=== PATIENT | female | born 1995 | race Caucasian/White ===

== ENCOUNTER 2018-04-12 06:27 | Inpatient (IN) ==
--- OUTSIDE RECORDS SUMMARY | 2018-04-14 16:07 | External Medical Summary | Continuity of Care Document ---
:1995 Author Organization [facility] Address [address] [place], [place] [id number] Phone Support Name Relationship Address Phone Dario Park parent [address] [phone] [place] [address] Allergies, Adverse Reactions, Alerts Substance Reaction Severity Status No Known Drug Allergies Unknown Active Medications Medication Instructions Dosage Effective Dates Status Comments (start - stop) Vitamin take 1 tablet by Not Available - Active tablet oral route every day Problems Condition Effective Dates (start - stop) Clinical Status Follow-Up, Routine - Encounter for suprvsn of normal - , third trimester 34 weeks gestation of - Encounter for suprvsn of normal - , first trimester 9 weeks gestation of - Encounter for suprvsn of normal - , first trimester 13 weeks gestation of - Encounter for suprvsn of normal - , second trimester 17 weeks gestation of - Encounter for suprvsn of normal - , second trimester 19 weeks gestation of - Encounter for suprvsn of normal - , second trimester 24 weeks gestation of - Encounter for suprvsn of normal - , second trimester 19 weeks gestation of - Encounter for suprvsn of normal - , third trimester Encounter For Screening For - Streptococcus B 36 weeks gestation of - Encounter for suprvsn of normal - , third trimester 32 weeks gestation of - Encounter for suprvsn of normal - , third trimester 32 weeks gestation of - Encounter for suprvsn of normal - , third trimester 37 weeks gestation of - Encounter for suprvsn of normal - , third trimester 30 weeks gestation of - Encounter for suprvsn of normal - , third trimester 28 weeks gestation of - Depression Active Migraines Active Active Procedures Procedure Date OB Visit No Charge Results Test Name Date and Time Measure Units Reference Range Abnormal Flag Comments Unknown Advance Directives Directive Yes / No Effective Date File Name Unknown Encounters Encounter Practice Location Reason(s) Diagnoses Date Provider Care Team Description For Visit Members Isela Krause Encounter for Mar- Wilfred Referring In Womens suprvsn of normal 6-201 Leslie. Provider: Carter SADLER, , third 8 [address] [id number] weeks [place], 1522, gestation of [address], Javon [place]vin, 120, [place] [id number], Jimi [facility] 120, [place] Jimi [place]REU, tel:[phone] [place], , [place]. [id number]. tel: tel:[phone] Isela Krause Encounter for Mar-0 Wilfred Referring In Womens suprvsn of normal 9-201 Leslie. Provider: Carter SADLER, , third 8 700 Jenny [address] trimesterEncounte [place] Herrera, 1522, r For Center [address] [place] [address], Screening For Javon Ervin Streptococcus B36 120, [place] [id number], weeks gestation Javon Kra[place] 120, [place] of Jimi ABREU, tel:[phone] [place], [id number] , [place]. [id number]. tel: tel:[phone] Isela Krause Encounter for Feb- Wilfred Referring In Womens suprvsn of normal 5-201 Leslie. Provider: Carter SADLER, , third 8 700 [address] [email or web address] weeks [place], 1522, gestation of [address], Javon Ervin [place], 120, [place] [id number], Jimi, [facility] 120, [place], tel:[phone] [place], , [place]. [id number]. tel: tel:[phone] Isela Krause Encounter for Sree-1 Wilfred Referring In Womens suprvsn of normal 1-201 Leslie. Provider: Health DOROTEO, , third 8 700 Jenny LLAMAS Box [email or web address] weeks [facility], 1522, gestation of Center [address] [place] [address], , [facility], 120, [place] [id number], Jimi, [facility] 120, [place], tel:[phone] [place], , [place]. [id number]. tel: tel:[phone] Isela Krause Encounter for Sree-1 Wilfred Referring In Womens Ultrasound suprvsn of normal 1-201 Leslie. Provider: Health DOROTEO, , third 8 700 Jenny Hernandez [id number] weeks [facility] Javier, 1522, gestation of Center [address] [place] [address], , [facility], 120, [place] [id number], Jimi, [facility] 120, [place], tel:[phone] [place], , [place]. [id number]. tel: tel:[phone] Isela Krause Encounter for May-2 Wilfred Referring In Womens suprvsn of normal 9-201 Leslie. Provider: Health DOROTEO, , third 8 700 Jenny Hernandez [email or web address] weeks [facility] Javier, 1522, gestation of Center [address] [place] [address], , [facility], 120, [place] [id number], Jimi, [facility] 120, [place], tel:[phone] [place], , [place]. [id number]. tel: tel:[phone] Krause Encounter for May-1 Wilfred Referring In Womens suprvsn of normal 4-201 Leslie. Provider: Health DOROTEO, , third 8 700 Jenny [address] [email or web address] weeks [facility], 1522, gestation of [address], , [facility] Medical [place], 120, Center [id number], Jimi, [facility] 120, [place], tel:[phone] [place], , [place]. [id number]. tel: tel:[phone] Isela Krause Encounter for Apr-1 Wilfred Referring In Womens suprvsn of normal 6-201 Leslie. Provider: Carter SADLER, , second 8 700 Jenny Hernandez weeks [facility] Javier, 1522, gestation of Center [address] [place] [address], , [facility], 120, [place] [id number], Jimi, [facility] 120, [place], tel:[phone] [place], , [place]. [id number]. tel: tel:[phone] Isela Krause Encounter for Mar-1 Wilfred Referring In Womens suprvsn of normal 2-201 Leslie. Provider: Carter SADLER, , second 8 700 Jenny Hernandez [email or web address] weeks [facility] Javier, 1522, gestation of Center [address] [place] [address], , [facility], 120, [place] [id number], Jimi, [facility] 120, [place] Jim[place]U, tel:[phone] [place], , [place]. [id number]. tel: tel:[phone] Isela Krause Encounter for Mar-1 Wilfred Referring In Womens Ultrasound suprvsn of normal 2-201 Leslie. Provider: Carter SADLER, , second 8 700 Jenny Hernandez [email or web address] weeks Medical Singh Javier, 1522, gestation of Center [address] [place] [address], , [facility] [place], 120, [place] [id number], Jimi, [facility] 120, [place], tel:[phone] [place], , [place]. [id number]. tel: tel:[phone] Isela Krause Encounter for Feb-2 Wilfred Referring In Womens suprvsn of normal 6-201 Leslie. Provider: Carter SADLER, , second 8 700 Jenny Hernandez weeks Medical Trent J, 1522, gestation of Center [address] [place] [address], , [facility] [place], 120, Center [id number], Jimi, [facility] 120, [place], tel:[phone] [place], , [place]. [id number]. tel: tel:[phone] Isela Krause Encounter for Denton-2 Wilfred Referring In Womens suprvsn of normal 9-201 Leslie. Provider: Carter SADLER, , first 8 700 Jenny Hernandez [email or web address] weeks Medical Singh [place]avier, 1522, gestation of Center [address] [place] [address], , [facility] [place], 120, Center [id number], Jimi, [facility] 120, [place], tel:[phone] [place], , [place]. [id number]. tel: tel:[phone] Isela Krause Encounter for Denton-0 Wilfred Referring In Womens suprvsn of normal 4-201 Leslie. Provider: Carter SADLER, , first 8 700 Jenny Hernandez [email or web address] weeks Medical Singh Javier, 1522, gestation of Center [address] [place] [address], , [facility] [place], 120, Center [id number], Jimi, [facility] 120, [place], tel:[phone] [place], , [place]. [id number]. tel: tel:[phone] Isela Krause Nov-2 Wilfred Referring In Womens Follow-Up, 1-201 Leslie. Provider: Carter SADLER, Routine 6 700 Jenny Singh [place]avier, 1522, Center [facility] Dr Shiv, [facility] [place], 120, [place] [id number], Jimi, [facility] 120, [place], tel:[phone] [place], , [place]. [id number]. tel: tel:[phone] Krause Sep-2 Wilfred Referring In Womens 6-201 Leslie. Provider: Carter SADLER, 6 700 Jenny Singh [place]avier, 1522, Center [facility] Dr Shiv, [facility] [place], 120, Center [id number], Jimi, [facility] 120, [place], tel: [phone] [place], , [place]. [id number]. tel: tel:[phone] Associates [facility] Dec- Wilfred Referring In Womens - Leslie. Provider: Health PA, 6 700 Jenny PO Box Medical Singh J, 1522, Center [facility] Dr Shiv, [facility] [place], 120, [place] [id number], [facility] 120, [place], Jim[place], tel: [phone] [place], , [place]. [id number]. tel: tel: [phone] [facility] Nov- Singh In Womens 5-201 Jenny. Health PA, 6 700 Box Medical 1522, [place] Dr Shiv, [facility] [place], 120, [id number], [place], [place], tel: [phone] , [place]. tel: [phone] Family History Family Member Diagnosis Age At Onset No family history of Diabetes No family history of Thyroid Disorder No family history of Uterine Cancer No family history of Venous Thrombosis No family history of Colon Cancer No family history of Stroke No family history of Kidney Disease No family history of Breast Cancer No family history of Cardiovascular Disease No family history of Epilepsy No family history of Osteoporosis No family history of Hypertension No family history of Lung Disease No family history of Ovarian Cancer No family history of Pulmonary Embolism Immunizations Vaccine Date Status Comments Tdap completed Source: New Immunization Record Tdap completed Source: New Immunization Record Td (adult) preservative free completed Source: Source Unspecified measles, mumps and rubella virus completed Source: Source Unspecified vaccine Payers Payer name Insurance type Covered libertarian ID Authorization(s) [facility] [place] [id number] [place] Medicaid [place] [id number] [facility] [place] [id number] [facility] Plan [place] Medicaid [place] [id number] [facility] [id number] [place] [id number] Social History Type Description Quantity Date Captured Alcohol Use Details No Caffeine Use Details Unknown Tobacco Use Status Unknown Smoking Status Never smoker Vital Signs Date / Height Weight BMI Pulse Blood Temperature Respiratory Body Head BMI Time: Rate Pressure Rate Surface Circumference percentile Area 196.40 30.9 129/76 2018 lbs 4 mm[Hg] 10:08 kg/m AM eter (2) Chief Complaint And Reason For Visit Unknown Chief Complaint And Reason For Visit Reason For Referral Reason For Referral Unknown Plan Of Care Date Type Action Status Appointment [place] BOOKED Appointment [facility] [place] BOOKED Future Order: Radiology Order Complete OB Ultrasound > 14 Weeks Ordered ([id number]) Future Order: Radiology Order Ultrasound OB Follow-up ([id number]) Ordered Date Type Problem Goal Intervention Status Start Date Unknown. History Of Present Illness Encounter Date Complaint History Of Present Illness This patient has no known history of present illness Functional Status Encounter Date Functional Assessment Cognitive Assessment Unknown Medications Administered Medication Instructions Dosage Effective Dates (start - stop) Status Comments Drug Treatment Unknown Instructions Date Instruction Additional Information domestic violence seat belt use childbirth classes / hospital facilities hospital registration genetic testing HIV and other routine tests risk factors identified by history anticipated course of care nutrition and weight gain counseling, special diet toxoplasmosis precautions (cats / raw meat) sexual activity exercise indications for ultrasound influenza vaccine environmental / work hazards travel use of any medications (including supplements, vitamins, herbs, OTC drugs) Giving encouragement to exercise Related to Body mass index 32.0-32.9
--- OUTSIDE RECORDS SUMMARY | 2018-04-14 16:07 | External Medical Summary | Continuity of Care Document ---
:1995 Author Organization [facility] Address [address] [place], [place] [id number] Phone Support Name Relationship Address Phone Dario Park parent [address] [phone] [place] [address] Allergies, Adverse Reactions, Alerts Substance Reaction Severity [...] second trimester 19 weeks gestation of - Depression Active Migraines Active Active Procedures Procedure Date OB Visit No Charge Results Test Name Date and Time Measure Units Reference Range Abnormal Flag Comments Unknown Advance Directives Directive Yes / No Effective Date File Name Unknown Encounters Encounter Practice Location Reason(s) Diagnoses Date Provider Care Team Description For Visit Members [facility] Encounter Wilfred Referring In [facility] for suprvsn -2017 Leslie. Provider: Health [place], of normal [address], , Medical Shiv [place], [facility] Center 700 [id number], [id number] Dr [facility] Medical [place] weeks 120, Center tel: gestation of Jimi [facility] 120, [address] [place], [id number] [place], , [place]. [id number]. tel: tel:[phone] Isela Krause Encounter Wilfred Referring In Womens Ultrasound for suprvs Leslie. Provider: Health PA, of normal [address], , [place], second Center 700 [id number], [email or web address] Dr [facility] [place] weeks 120, Center tel: gestation of [facility] 120, [address] Jimi [place], [id number] [place], , [place]. [id number]. tel: tel:[phone] Isela Krause Encounter Wilfred Referring In Womens for suprvs Leslie. Provider: Health PA, of normal [address], , [place], second Center 700 , [id number] Dr [facility] [place] weeks 120, Center tel: gestation of Jimi [facility] 120, [address] [place] Jimi, [id number] [place], , [place]. [id number]. tel: tel:[phone] Isela Krause Encounter Wilfred Referring In Womens for suprvsn Leslie. Provider: Health PA, of normal [address], , [place], first Center 700 [id number], [email or web address] Dr [facility] [place] weeks 120, Center tel: gestation of Jimi [facility] 120, [address] [place] Jimi, [id number] [place], , [place]. [id number]. tel: tel:[phone] Isela Krause Encounter Wilfred Referring In Womens for suprvsn Leslie. Provider: Health PA, of normal [address], , [place], first Center 700 [id number], trimester9 Dr [facility] weeks 120, [place] tel:+[phone] gestation of [place], [facility] 120, [address] [place], [place], [id number] [place], , [place]. [id number]. tel: tel:[phone] Isela Krause Jul- Wilfred Referring In Womens Follow-Up, nda. Provider: Carter SADLER, Routine [address], [place], [place] [id number], , [facility] [place] 120, [place] tel:+ Kra[place], [facility] 120, [address] [place], [place], [id number] [place], , [place]. [id number]. tel: tel:[phone] Isela Krause May- Wilfred Referring In Womens -2015 Leslie. Provider: Carter SADLER, [address], [place], [place] [id number], , [facility] 120, [place] [facility]+ [facility] [address] [place], [place], [id number] [place], , [place]. [id number]. tel: tel:[phone] Isela Krause Dec- Wilfred Referring In Womens -2015 Leslie. Provider: Carter SADLER, [address], [place], Center [facility] [id number], , [facility] 120, [place] tel: Jimi [facility] 120, [address] [place], Jimi, [id number] [place], , [place]. [id number]. tel: tel:[phone] Isela Krause Nov- Singh In Womens -2015 Jenny. Carter SADLER, 700 [address], [place], [place] [id number], , [facility] 120, tel:[phone] Jim[place], [address] [place], [id number] , [place]. tel: [phone] Family History Family Member Diagnosis Age At [...] Comments Tdap completed Source: New Immunization Record Td (adult) preservative free completed Source: Source Unspecified measles, mumps and rubella virus completed Source: Source Unspecified vaccine Payers Payer name Insurance type Covered alliance party ID Authorization(s) [facility] [id number] [place] - Medicaid MC [id number] [facility] [id number] [place] [id number] Social History Type Description Quantity Date Captured Alcohol Use Details No Caffeine Use Details Unknown Tobacco Use Status Unknown Smoking Status Never smoker Vital Signs Date / Height Weight BMI Pulse Blood Temperature Respiratory Body Head BMI Time: Rate Pressure Rate Surface Circumference percentile Area Unknown Chief Complaint And Reason For Visit Unknown Chief Complaint And Reason For Visit Reason For Referral Reason For Referral Unknown Plan Of Care Date Type Action Status Appointment [facility] [place] BOOKED Future Order: Radiology Order Complete OB Ultrasound > 14 Weeks Ordered ([id number]) Date Type Problem Goal Intervention Status Start [...] (cats / raw meat) sexual activity exercise Denton-04-2018 indications for ultrasound influenza vaccine environmental / work hazards travel use of any medications (including supplements, vitamins, herbs, OTC drugs) Giving encouragement to exercise Related to Body mass index 32.0-32.9
--- OUTSIDE RECORDS SUMMARY | 2018-04-14 16:07 | External Medical Summary | Continuity of Care Document ---
:1995 Author Organization [facility] Address [address] [place], [place] [id number] Phone Support Name Relationship Address Phone [place] parent [address] [phone] [place] [address] Allergies, Adverse Reactions, Alerts Substance Reaction Severity [...] suprvsn of normal - , third trimester 38 weeks gestation of - Encounter for suprvsn [...] Active Migraines Active Active Procedures Procedure Date Immuniz admnin, 1 vac, sngl/combo 19 Yrs + TDAP VACCINE >7 IM OB Visit No Charge Results Test Name Date and Time Measure Units Reference Range Abnormal Flag Comments Panel Description: Strep Gp B Culture Strep Gp B Negative Negative Centers for Disease Control Culture 11:30:00 and Prevention (CDC) and [place] Congressof Obstetricians and Gynecologists (ACOG) guidelines for prevention ofperinatal group B streptococcal (GBS) disease specify co-collection ofa vaginal and rectal swab specimen to maximize sensitivity of GBSdetection. Per the CDC and ACOG, swabbing both the lower vagina andrectum substantially increases the yield of detection compared withsampling the vagina alone. .Penicillin G, ampicillin, or cefazolin are indicated for intrapartumprophylaxis of GBS colonization. Reflex susceptibilitytesting should be performed prior to use of clindamycin only on GBSisolates from penicillin-allergic women who are considered a high riskfor anaphylaxis. Treatment with vancomycin without additional testingis warranted if resistance to clindamycin is noted. Advance Directives Directive Yes / No Effective Date File Name Unknown Encounters Encounter Practice Location Reason(s) Diagnoses Date Provider Care Team Description For Visit Members Isela Krause Encounter for Wilfred Referring In Womens suprvsn of normal 3-201 Leslie. Provider: [facility], , third 8 700 [address] [email or web address] weeks Medical Francisco Herrera, 1522, gestation of Center [address] [place], , [facility] Medical [place], 120, [place] [id number], Jimi, Javon 120, [place] Jim[place], tel:[phone] [place], , [place]. [id number]. tel: tel:[phone] Isela Krause Encounter for Sarbjit-1 Wilfred Referring In Womens suprvsn of normal 6-201 Leslie. Provider: Health DOROTEO, , third 8 700 Jenny LLAMAS Box [email or web address] weeks [facility] Javier, 1522, gestation of Center [address] [place] [address], Dr [facility] [place], 120, Center [id number], Jimi, [facility] 120, [place], tel:[phone] [place], , [place]. [id number]. tel: tel:[phone] Isela Krause Encounter for Sarbjit-0 Wilfred Referring In Womens suprvsn of normal 9-201 Leslie. Provider: Health DOROTEO, , third 8 700 Jenny Hernandez trimesterEncounte [facility] Javier, 1522, r For Center [address] [place] [address], Screening For , [facility] [place] ABREU, Streptococcus B36 120, [place] [id number], weeks gestation [place], [facility] 120, [place] of [place], tel:[phone] [place], , [place]. [id number]. tel: tel:[phone] Isela Krause Encounter for Sree-2 Wilfred Referring In Womens suprvsn of normal 5-201 Leslie. Provider: Health DOROTEO, , third 8 700 Jenny Hernandez [email or web address] weeks Medical Francisco Herrera, 1522, gestation of Center [address] [place] [address], Dr [facility] [place], 120, Center [id number], Jimi, [facility] 120, [place], tel:[phone] [place], , [place]. [id number]. tel: tel:[phone] Isela Krause Encounter for Sree-1 Wilfred Referring In Womens suprvsn of normal 1-201 Leslie. Provider: Health DOROTEO, , third 8 700 Jenny LLAMAS Box [id number] weeks [facility] Javier, 1522, gestation of [address], Dr Javon Medical [place], 120, Center [id number], Jimi, [facility] 120, [place], tel:[phone] [place], , [place]. [id number]. tel: tel:[phone] Isela Krause Encounter for Sree-1 Wilfred Referring In Womens Ultrasound suprvsn of normal 1-201 Leslie. Provider: Health DOROTEO, , third 8 700 Jenny LLAMAS Box [email or web address] weeks [facility] Javier, 1522, gestation of Center [address] [place] [address], , [facility], 120, [place] [id number], Jimi, [facility] 120, [place], tel:[phone] [place], , [place]. [id number]. tel: tel:[phone] Isela Krause Encounter for May-2 Wilfred Referring In Womens suprvsn of normal 9-201 Leslie. Provider: Carter SADLER, , third 8 700 Jenny Hernandez [email or web address] weeks [facility] Javier, 1522, gestation of Center [address] [place] [address], , [facility], 120, [place] [id number], Jimi, [facility] 120, [place], tel:[phone] [place], , [place]. [id number]. tel: tel:[phone] Isela Krause Encounter for May-1 Wilfred Referring In Womens suprvsn of normal 4-201 Leslie. Provider: Health DOROTEO, , third 8 700 Jenny LLAMAS Box [email or web address] weeks [facility] Javier, 1522, gestation of Center [address] [place] [address], , [facility], 120, [place] [id number], Jimi, [facility] 120, [place], tel:[phone] [place], , [place]. [id number]. tel: tel:[phone] Krause Encounter for Apr-1 Wilfred Referring In Womens suprvsn of normal 6-201 Leslie. Provider: Health DOROTEO, , second 8 700 Jenny [address] [email or web address] weeks [facility], 1522, gestation of Center [address] [place] [address], , [facility] [place], 120, Center [id number], Jimi, [facility] 120, [place], tel:[phone] [place], , [place]. [id number]. tel: tel:[phone] Isela Krause Encounter for Mar-1 Wilfred Referring In Womens suprvsn of normal 2-201 Leslie. Provider: Carter SADLER, , second 8 700 Jenny Hernandez [id number] weeks [facility] J, 1522, gestation of Center [address] [place] [address], , [facility], 120, [place] [id number], Jimi, [facility] 120, [place], tel:[phone] [place], , [place]. [id number]. tel: tel:[phone] Isela Krause Encounter for Mar-1 Wilfred Referring In Womens Ultrasound suprvsn of normal 2-201 Leslie. Provider: Carter SADLER, , second 8 700 Jenny Hernandez [id number] weeks [facility] Javier, 1522, gestation of Center [address] [place] [address], , [facility], 120, [place] [id number], Jimi, [facility] 120, [place], tel:[phone] [place], , [place]. [id number]. tel: tel:[phone] Isela Krause Encounter for Feb-2 Wilfred Referring In Womens suprvsn of normal 6-201 Leslie. Provider: Carter SADLER, , second 8 700 Jenny Hernandez [email or web address] weeks Medical Singh Javier, 1522, gestation of Center [address] [place] [address], , [facility] [place], 120, [place] [id number], Jimi, [facility] 120, [place], tel:[phone] [place], , [place]. [id number]. tel: tel:[phone] Isela Krause Encounter for Denton-2 Wilfred Referring In Womens suprvsn of normal 9-201 Leslie. Provider: Carter SADLER, , first 8 700 Jenny Hernandez [email or web address] weeks [facility] J, 1522, gestation of Center [address] [place] [address], , [facility], 120, Center [id number], Jimi, [facility] 120, [place], tel:[phone] [place], , [place]. [id number]. tel: tel:[phone] Isela Krause Encounter for Denton-0 Wilfred Referring In Womens suprvsn of normal 4-201 Leslie. Provider: Carter SADLER, , first 8 700 Jenny Hernandez [email or web address] weeks [place] Francisco Herrera, 1522, gestation of Center [address] [place] [address], , [facility], 120, [place] [id number], Jimi, [facility] 120, [place], tel:+ [phone] [place], , [place]. [id number]. tel: tel:[phone] Isela Krause Nov-2 Wilfred Referring In Womens Follow-Up, 1-201 Leslie. Provider: Carter SADLER, Routine 6 700 Jenny Singh [place], 1522, Center [facility] Dr Shiv, [facility], 120, [place] [id number], Jimi, [facility] 120, [place], tel:[phone] [place], , [place]. [id number]. tel: tel:[phone] Isela Krause Sep-2 Wilfred Referring In Womens 6-201 Leslie. Provider: Carter SADLER, 6 700 Jenny Singh [place], 1522, Center [facility] Dr Shiv, [facility], 120, [place] [id number], Jimi, [facility] 120, [place], tel:[phone] [place], , [place]. [id number]. tel: tel:[phone] Isela Krause Apr-1 Wilfred Referring In Womens 1-201 Leslie. Provider: Carter SADLER, 6 700 Jenny Singh [place], 1522, Center [facility] Dr Shiv, [facility], 120, [place] [id number], Jimi, [facility] 120, [place], tel:[phone] [place], , . [id number]. tel: tel: [phone] Associates [place] [facility]- [place] In Womens 5-201 [facility], 6 700 [facility] 1522, [place] Dr Shiv, Javon [place], 120, [id number], [place], [place], tel: [phone] , . tel: [phone] Family History Family Member Diagnosis Age At [...] vaccine Payers Payer name Insurance type Covered constitution party ID Authorization(s) [facility] [id number] [place] - Medicaid [place] [id number] [facility] [id number] [place] Medicaid [place] [id number] [facility] [id number] [place] - Medicaid [place] [id number] Social History Type Description Quantity Date Captured Alcohol Use Details No Caffeine Use Details Unknown Tobacco Use Status Unknown Smoking Status Never smoker Vital Signs Date / Height Weight BMI Pulse Blood Temperature Respiratory Body Head BMI Time: Rate Pressure Rate Surface Circumference percentile Area 197.90 31.1 153/89 lbs 8 mm[Hg] 11:59 kg/m AM eter (2) 30. 4 11:28 kg/m AM eter (2) Chief Complaint And Reason For Visit Unknown Chief Complaint And Reason For Visit Reason For Referral Reason For Referral Unknown Plan Of Care Date Type Action Status Future Order: Radiology Order Complete OB Ultrasound > 14 Weeks Ordered ([id number]) Future Order: Radiology Order Ultrasound OB Follow-up ([id number]) Ordered Date Type Problem Goal Intervention Status [...]
--- OUTSIDE RECORDS SUMMARY | 2018-04-14 16:08 | External Medical Summary | Continuity of Care Document ---
:1995 Author Organization [facility] Address [address] [place], [place] [id number] Phone Support Name Relationship Address Phone [place] parent [address] [phone] [place] [address] Allergies, Adverse Reactions, Alerts Substance Reaction Severity [...] Active Migraines Active Active Procedures Procedure Date Ultrasnd preg uterus, flwup/repeat Results Test Name Date and Time Measure Units Reference Range Abnormal Flag Comments Unknown Advance Directives Directive Yes / No Effective Date File Name Unknown Encounters Encounter Practice Location Reason(s) Diagnoses Date Provider Care Team Description For Visit Members Isela Krause Encounter Wilfred Referring In Womens for suprvsn -2017 Leslie. Provider: Health PA, of normal [address], , [place], third Center 700 [id number], [email or web address] [facility] [place] weeks 120, [place] tel:+ gestation of [place], [facility] 120, [address] Jimi [place], [id number] [place], , [place]. [id number]. tel: tel:[phone] Isela Krause Encounter Wilfred Referring In Womens for suprvsn Leslie. Provider: Health PA, of normal 700 Jenny [address], , [place], third Center 700 [id number], [email or web address] Javon [facility] [place] weeks 120, [place] tel: gestation of [facility] 120, [address] Jim[place], [id number] [place], , [place]. [id number]. tel: tel:[phone] Isela Krause Encounter Wilfred Referring In Womens Ultrasound for suprvsn Leslie. Provider: Health PA, of normal 700 Jenny [address], , [place], third Center 700 [id number], [email or web address] Javon [facility] [place] weeks 120, Center tel:+[phone] gestation of Jimi [facility] 120, [address] Jimi [place], [id number] [place], , [place]. [id number]. tel: tel:[phone] Isela Krause Encounter Wilfred Referring In Womens for suprvsn Leslie. Provider: Health PA, of normal 700 Jenny [address], , Medical Shiv [place], third Center 700 [id number], [email or web address] [facility] [place] weeks 120, Center tel: gestation of Jimi [facility] 120, [address] Jimi [place], [id number] [place], , [place]. [id number]. tel: tel:[phone] Krause Encounter Wilfred Referring In Womens for suprvsn Leslie. Provider: Health PA, of normal [address], , [place], third Center 700 [id number], [email or web address] [facility] [place] weeks 120, [place] tel: gestation of Jimi [facility] 120, [address] Jimi [place], [id number] [place], , [place]. [id number]. tel: tel:[phone] Krause Encounter Wilfred Referring In Womens for vs Leslie. Provider: Health PA, of normal [address], , [place], second Center 700 [id number], [email or web address] [facility] [place] weeks 120, [place] tel: gestation of Jimi [facility] 120, [address] Jim[place], [id number] [place], , [place]. [id number]. tel: tel:[phone] Krause Encounter Wilfred Referring In Womens for vs Leslie. Provider: Health PA, of normal [address], , [place], second Center 700 [id number], Dr [facility] [place] weeks 120, Center tel: gestation of Jimi [facility] 120, [address] Jimi [place], [id number] [place], , [place]. [id number]. tel: tel:[phone] Isela Krause Encounter Nov- Wilfred Referring In Womens Ultrasound for suprvs Leslie. Provider: Health PA, of normal [address], , [place], second Center 700 [id number], [email or web address] Dr [facility] [place] weeks 120, Center tel: gestation of Javon Kra[place] 120, [address] Jim[place], [id number] [place], , [place]. [id number]. tel: tel:[phone] Isela Krause Encounter Wilfred Referring In Womens for suprvsn -2017 Leslie. Provider: Health PA, of normal [address], , [place], second Center 700 [id number], [email or web address] [facility] [place] weeks 120, Center tel: gestation of Jimi [facility] 120, [address] Jimi [place], [id number] [place], , [place]. [id number]. tel: tel:[phone] Isela Krause Encounter Wilfred Referring In Womens for suprn -2017 Leslie. Provider: Health PA, of normal [address], , [place], first Center 700 [id number], [email or web address] [facility] [place] weeks 120, Center tel: gestation of Jimi [facility] 120, [address] Jimi [place], [id number] [place], , [place]. [id number]. tel: tel:[phone] Isela Krause Encounter Wilfred Referring In Womens for n Leslie. Provider: Health PA, of normal [address], , [place], first Center [id number], [email or web address] Dr [facility] [place] weeks 120, Center tel: gestation of Jimi [facility] 120, [address] Jimi [place], [id number] [place], , [place]. [id number]. tel: tel:[phone] Krause Wilfred Referring In Womens Follow-Up, -2016 Leonardo. Provider: Carter SADLER, Routine [address], [place], Center [facility] [id number], , [facility] 120, [place] tel:[phone] Javon [place] 120, [address] [place], [place], [id number] [place], , [place]. [id number]. tel: tel:[phone] Associates Jimi Wilfred Referring In Womens -2015 Leonardo. Provider: Health DOROTEO, [address], [place], Center [facility] [id number], , [facility] 120, [place] tel:+[phone] Jimi [facility] 120, [address] [place], [place], [id number] [place], , [place]. [id number]. tel: tel:[phone] Associates Jimi Wilfred Referring In Womens Leonardo. Provider: Carter SADLER, [address], [place], Center [facility] [id number], , [place] [address], [place] tel:+[phone] Jimi [facility] 120, [address] [place], [place], [id number] [place], , [place]. [id number]. tel: tel:[phone] Associates Jimi Singh In [facility]. Health DOROTEO, 700 [address], [place], [place] [id number], , [facility] 120, tel:[phone] Jimi, [address] [place], [id number] , [place]. tel: [phone] Family History Family Member Diagnosis Age At [...] Insurance type Covered constitution party ID Authorization(s) [facility] [place] [id number] [employer] [place] - [place] [id number] [facility] [id number] [place] - [place] [id number] Social History Type Description Quantity Date Captured Unknown Vital Signs Date / Height Weight BMI Pulse Blood Temperature Respiratory Body Head BMI Time: Rate Pressure Rate Surface Circumference percentile Area Unknown Chief Complaint And Reason For Visit Unknown Chief Complaint And Reason For Visit Reason For Referral Reason For Referral Unknown Plan Of Care Date Type Action Status Appointment [place] BOOKED Future Order: Radiology Order Ultrasound OB Follow-up ([id number]) Ordered Future Order: Radiology Order Complete OB Ultrasound > 14 Weeks Ordered ([id number]) Date Type Problem Goal Intervention Status Start [...]
--- OUTSIDE RECORDS SUMMARY | 2018-04-14 16:08 | External Medical Summary | Continuity of Care Document ---
:1995 Author Organization [facility] Address [address] [place], [place] [id number] Phone Support Name Relationship Address Phone [place] parent [address] [phone] [place] [address] Allergies, Adverse Reactions, Alerts Substance Reaction Severity [...] [address], , Medical Shiv [place], third Center [id number], [email or web address] [facility] [place] weeks 120, [place] tel:+21 gestation of Jimi [facility] 120, [address] Jimi ABREU, [id number] [place], , [place]. [id number]. tel: tel:[phone] Isela Krause Encounter Wilfred Referring In Womens for suprvsn -2017 Leslie. Provider: Health PA, of normal [address], , [place], third Center [id number], [email or web address] [facility] US weeks 120, [place] tel:+21 gestation of Jimi [facility] 120, [address] Jimi ABREU, [id number] [place], , [place]. [id number]. tel: tel:[phone] Isela Krause Encounter Wilfred Referring In Womens Ultrasound for suprvsn Leslie. Provider: Health PA, of normal [address], , [place], third Center 700 [id number], [email or web address] Javon Ervin [place] weeks 120, [place] tel:+21 gestation of Jimi [facility] 120, [address] Jimi ABREU, [id number] [place], , [place]. [id number]. tel: tel:[phone] Isela Krause Encounter Wilfred Referring In Womens for suprvsn Leslie. Provider: Health PA, of normal [address], , Medical [place], third Center 700 [id number], [email or web address] Dr Javon Sabas [place] weeks 120, Center tel:+ gestation of Jimi [facility] 120, [address] Jimi ABREU, [id number] [place], , [place]. [id number]. tel: tel:[phone] Isela Krause Encounter Wilfred Referring In Womens for suprvsn -2017 Leslie. Provider: Health PA, of normal [address], , Medical [place], third Center 700 [id number], [email or web address] [facility] US weeks 120, Center tel:+21 gestation of Jimi [facility] 120, [address] Jimi ABREU, [id number] [place], , [place]. [id number]. tel: tel:[phone] Isela Krause Encounter Wilfred Referring In Womens for suprvsn -2017 Leslie. Provider: Health PA, of normal [address], , Medical [place], second Center 700 [id number], [email or web address] Dr [facility] US weeks 120, [place] tel:+21 gestation of Jimi [facility] 120, [address] Jimi ABREU, [id number] [place], , [place]. [id number]. tel: tel:[phone] Isela Krause Encounter Wilfred Referring In Womens for suprvsn -2018 Leslie. Provider: Health PA, of normal [address], , Medical [place], second Center 700 [id number], [email or web address] Javon Ervin [place] weeks 120, [place] tel:+21 gestation of Jimi [facility] 120, [address] Jimi ABREU, [id number] [place], , [place]. [id number]. tel: tel:[phone] Isela Krause Encounter Wilfred Referring In Womens Ultrasound for suprvsn Leslie. Provider: Health PA, of normal [address], , Medical [place], second Center 700 [id number], [email or web address] Dr [facility] US weeks 120, Center tel:+ gestation of Jimi, [facility] 120, [address] Jimi ABREU, [id number] [place], , [place]. [id number]. tel: tel:[phone] Isela Krause Encounter Wilfred Referring In Womens for suprvsn -2017 Leslie. Provider: Health PA, of normal [address], , Medical [place], second Center 700 [id number], [email or web address] [facility] US weeks 120, Center tel: gestation of Jimi [facility] 120, [address] Jimi ABREU, [id number] [place], , [place]. [id number]. tel: tel:[phone] Isela Krause Encounter Wilfred Referring In Womens for suprvsn -2017 Leslie. Provider: Health PA, of normal [address], , [place], first Center 700 [id number], [facility] US weeks 120, [place] tel: gestation of Jimi [facility] 120, [address] Jimi ABREU, [id number] [place], , [place]. [id number]. tel: tel:[phone] Isela Krause Encounter Wilfred Referring In Womens for suprvsn -2017 Leslie. Provider: Health PA, of normal [address], , [place], first Center 700 [id number], [email or web address] Javon Ervin [facility] [place] weeks 120, Center tel:+ gestation of Jimi [facility] 120, [address] Jimi ABREU, [id number] [place], , [place]. [id number]. tel: tel:[phone] Isela Krause Wilfred Referring In Womens Follow-Up, -2015 Leslie. Provider: Carter SADLER, Routine [address], Medical Singh Javier [place], [place], Center [facility] [id number], , [facility] 120, [place] tel:[phone] Jimi [facility] 120, [address] [place], Jimi, [id number] [place], , [place]. [id number]. tel: tel:[phone] Associates Jimi Wilfred Referring In Womens [place]. Provider: Carter SADLER, [address], Medical Singh Javier [place], [place], Center [facility] [id number], , [facility] 120, [place] tel:[phone] Jimi [facility] 120, [address] [place], Jim[place], [id number] [place], , [place]. [id number]. tel: tel:[phone] Associates [facility] Wilfred Referring In Women [place]. Provider: Carter SADLER, [address], Medical [place] Javier [place], Center [facility] [id number], , [facility] 120, [place] tel:[phone] Jimi [facility] 120, [address] [place], Jim[place], [id number] [place], , [place]. [id number]. tel: tel:[phone] Isela Krause Singh In [facility]. Health DOROTEO, 700 [address], [facility] [place], [place] [id number], , [facility] 120, tel:[phone] Jimi, [address] [place], [id number] , [place]. tel: [phone] Family History Family Member Diagnosis Age At [...] vaccine Payers Payer name Insurance type Covered green party ID Authorization(s) [facility] [id number] [employer] [place] Medicaid [place] [id number] [facility] [id number] [employer] [place] Medicaid [place] [id number] Social History Type Description Quantity Date Captured [...] Date Type Action Status Appointment [place] Future Order: Radiology Order Complete OB Ultrasound > 14 Weeks Ordered ([id number]) Future Order: Radiology Order Ultrasound OB Follow-up ([id number]) Ordered Date Type Problem Goal Intervention Status [...]
--- OUTSIDE RECORDS SUMMARY | 2018-04-14 16:08 | External Medical Summary | Continuity of Care Document ---
:1995 Author Organization [facility] Address [address] [place], [place] [id number] Phone Support Name Relationship Address Phone [place] parent [address] [phone] [place] [address] Allergies, Adverse Reactions, Alerts Substance Reaction Severity [...] third trimester 28 weeks gestation of - Encounter for suprvsn [...] third trimester 30 weeks gestation of - Depression Active Migraines [...] Referring In Womens for suprvsn Leslie. Provider: Carter SADLER, of normal 700 [address], , Medical [place], third Center 700 [id number], Javon Ervin Medical [place] weeks 120, Center tel: gestation of Krause, [facility] 120, [address] Jimi ABERU, [id number] [place], , [place]. [id number]. tel: tel:[phone] Isela Krause Encounter Wilfred Referring In Womens for suprvsn -2017 Leslie. Provider: Health DOROTEO, of normal [address], , Medical [place], third Center 700 [id number], [email or web address] Dr [facility] US weeks 120, Center tel: gestation of Jimi [facility] 120, [address] Jimi ABREU, [id number] [place], , [place]. [id number]. tel: tel:[phone] Isela Krause Encounter Wilfred Referring In Womens for suprvsn -2017 Leslie. Provider: Carter SADLER, of normal [address], , Medical [place], second Center 700 [id number], [email or web address] Dr [facility] US weeks 120, Center tel: gestation of Jimi [facility] 120, [address] Jimi ABREU, [id number] [place], , [place]. [id number]. tel: tel:[phone] Isela Krause Encounter Wilfred Referring In Womens for suprvsn Leslie. Provider: Carter SADLER, of normal [address], , [place], second Center 700 [id number], [email or web address] Javon Ervin Medical [place] weeks 120, Center tel:21 gestation of Jimi [facility] 120, [address] Jimi ABREU [id number] [place], , [place]. [id number]. tel: tel:[phone] Associates [facility] Encounter Wilfred Referring In Womens Ultrasound for suprvsn Leslie. Provider: Health PA, of normal [address], , [place], second Center 700 [id number], [email or web address] Dr [facility] Medical [place] weeks 120, Center tel: gestation of Krause, [facility] 120, [address] Jimi ABREU, [id number] [place], , [place]. [id number]. tel: tel:[phone] Associates [facility] Encounter Wilfred Referring In Womens for suprvsn -2017 Leslie. Provider: Health PA, of normal 700 [address], , [place], second Center 700 [id number], [email or web address] Dr [facility] US weeks 120, Center tel: gestation of Jimi [facility] 120, [address] Jimi ABREU, [id number] [place], , [place]. [id number]. tel: tel:[phone] Isela Krause Encounter Wilfred Referring In Womens for suprvsn -2017 Leslie. Provider: Health PA, of normal [address], , Medical [place], first Center 700 [id number], Dr [facility] Medical [place] weeks 120, Center tel: gestation of Jimi [facility] 120, [address] Jimi ABREU, [id number] [place], , [place]. [id number]. tel: tel:[phone] Isela Krause Encounter Wilfred Referring In Womens for suprvsn -2017 Leslie. Provider: Health DOROTEO, of normal [address], , [place], first Center 700 [id number], [email or web address] Dr [facility] Medical [place] weeks 120, Center tel:21 gestation of Jimi [facility] 120, [address] Jimi ABREU, [id number] [place], , [place]. [id number]. tel: tel:[phone] Isela Krause Wilfred Referring In Womens Follow-Up, Leslie. Provider: Health DOROTEO, Routine [address], [place], Center 700 [id number], , [facility] 120, [place] tel:[phone] Krause, Javon 120, [address] [place], [place], [id number] [place], , [place]. [id number]. tel: tel:[phone] Isela Krause May- Wilfred Referring In Womens -2015 Leslie. Provider: Carter SADLER, [address], [place], Center [facility] [id number], , [facility] 120, [place] tel:+21 Jimi, Javon 120, [address] [place], [place], [id number] [place], , [place]. [id number]. tel: tel:[phone] Isela Krause Dec- Wilfred Referring In Womens -2016 Leslie. Provider: Carter SADLRE, [address], [place], Center [facility] [id number], , [facility] 120, [place] tel:+[phone] Jimi, Javon 120, [address] [place], [place], [id number] [place], , [place]. [id number]. tel: tel:[phone] Isela Krause Signh In Womens -2016 Jenny. Health DOROTEO, 700 [address], [place], Center [id number], , [facility] 120, tel:+[phone] Jimi, [address] [place], [id number] , [place]. tel: [phone] Family History Family Member Diagnosis Age At [...] name Insurance type Covered libertarian ID Authorization(s) [facility] [id number] [employer] [place] Medicaid [place] [id number] [facility] [id number] [employer] [place] Medicaid [place] [id number] Social History Type Description Quantity Date Captured [...] [place] BOOKED Appointment [place] BOOKED Appointment [place] BOOKED Appointment [place] BOOKED Future Order: Radiology Order Complete OB Ultrasound > 14 Weeks Ordered ([id number]) Date Type Problem Goal Intervention Status Start [...]
--- OUTSIDE RECORDS SUMMARY | 2018-04-14 16:08 | External Medical Summary | Continuity of Care Document ---
:1995 Author Organization [facility] Allergies Active Description Code Type Severity Reaction Onset Reported/ Identified Relationship Clinical to Patient Status Yes No Known 53332 3 N/A N/A Drug 0 Allergies Yes No Known No Aller Unknown N/A 02/20/2011 Drug Known gy Allergies Drug Aller gies Medications Medication Packaging Start Date Stop Date Route Dosage Sig TAB 06/28/2016 1 Pnv#24/Iron Aa DAILY Jennifer/FA/Dha TAB 06/28/2016 1-2 Hydrocodone/Acet Q4H aminophen MG 06/28/2016 240 Docusate Calcium DAILY MG 06/28/2016 800 Ibuprofen Q8HMC Package 07/31/2016 09/12/2017 WALLY take 1 tablet by oral route every day 03/21/2018 PO 1 each Tablet DAILY Problems Date Dx Attending Type Code Diagnosis Diagnosed By Coded 12/20/2015 Leslie Hardin Z34.01 Encntr for suprvsn L of normal first preg, first trimester 12/20/2015 Leslie Hardin Z3A.12 12 weeks gestation L of 02/14/2016 Leslie Hardin Z34.02 Encntr for suprvsn L of normal first preg, second trimester 02/14/2016 Leslie Hardin Z3A.20 20 weeks gestation L of 04/19/2016 Sherrie Ritchie O36.8130 Decreased Movement 04/19/2016 Sherrie Ritchie Z34.03 Routine Care, Primagravida 05/22/2016 Leslie Hardin O36.5930 Matern care for oth L or susp poor fetl grth, third tri, unsp 05/22/2016 Leslie Hardin O36.8130 Decreased L movements, third trimester, unsp 05/22/2016 Leslie Hardin Z3A.34 34 weeks gestation L of 06/05/2016 Leslie Hardin Z36 Screening L 11/19/2017 Leslie Hardin Z34.82 Encounter for L suprvsn of normal , second trimester 11/19/2017 Leslie Hardin Z3A.19 19 weeks gestation L of 02/18/2018 Leslie Hardin W Z34.83 Encounter for L suprvsn of normal , third trimester 02/18/2018 Leslie Hardin Z3A.32 32 weeks gestation L of Procedures Code Description [place] [address] Ultrasound, 12/20/2015 Nuchal Translucency Measurement 99821 Ultrasnd exam 02/14/2016 of preg uterus, compl 17109 Ultrasnd preg 05/22/2016 uterus, flwup/repeat 25998 Immuniz 06/05/2016 admnin, 1 vac, sngl/combo 51534 TDAP VACCINE 06/05/2016 >7 IM 83138 Ultrasnd exam 11/19/2017 of preg uterus, compl 64752 Ultrasnd preg 02/18/2018 uterus, flwup/repeat 67729 Immuniz 03/18/2018 admnin, 1 vac, sngl/combo 26055 TDAP VACCINE 03/18/2018 >7 IM Results Test Result Range L100.0070 - 06/25/16 17:48 WBC - WHITE BLOOD COUNT 8.0 T/MM3 4.5-11.0 RED BLOOD COUNT 3.83 M/MM3 4.00-5.20 HGB - HEMOGLOBIN 11.7 GM/DL 12-16 HCT - HEMATOCRIT 34.3 % 36-46 MEAN CORPUSCULAR VOLUME 89.6 UM3 80-100 MEAN CORPUSCULAR HGB 30.5 UUG 26-34 MEAN CORPUSCULAR HGB CONC(MCHC 34.1 GM/DL 31-37 RDW STANDARD DEVIATION 41.1 FL 36.9-50.2 PLT - PLATELET COUNT 180 T/MM3 130-400 MEAN PLATELET VOLUME 11.4 UM3 9.4-12.4 B100.0700 - 06/25/16 17:48 BLOOD TYPE O POSITIVE ANTIBODY SCREEN NEGATIVE B110.1099 - 06/25/16 17:48 BBT5 O POSITIVE Encounters ACCT No. Visit Discharge Status Pt. Type Provider Facility Loc./Unit Complaint Date/Time [id number] 04/01/2018 04/01/2018 CLS Outpatient Wilfred, 13:30:00 23:59:59 Leslie L [id number] 03/25/2018 03/25/2018 CLS Outpatient Wilfred, 09:30:00 23:59:59 Leslie L [id number] 03/18/2018 03/18/2018 CLS Outpatient Wilfred, 11:15:00 23:59:59 Leslie L [id number] 03/04/2018 03/04/2018 CLS Outpatient Wilfred, 09:45:00 23:59:59 Leslie L [id number] 02/18/2018 02/18/2018 CLS Outpatient Wilfred, 13:15:00 23:59:59 Leslie L [id number] 02/18/2018 02/18/2018 CLS Outpatient Wilfred, 12:45:00 23:59:59 Leslie L [id number] 02/05/2018 02/05/2018 CLS Outpatient Wilfred, 11:30:00 23:59:59 Leslie L [id number] 01/21/2018 01/21/2018 CLS Outpatient Wilfred, 11:15:00 23:59:59 Leslie L [id number] 12/24/2017 12/24/2017 CLS Outpatient Wilfred, 10:15:00 23:59:59 Leslie L [id number] 11/19/2017 11/19/2017 CLS Outpatient Wilfred, 10:25:00 23:59:59 Leslie L [id number] 11/19/2017 11/19/2017 CLS Outpatient Wilfred, 09:45:00 23:59:59 Leslie L [id number] 11/05/2017 11/05/2017 CLS Outpatient Wilfred, 11:30:00 23:59:59 Leslie L [id number] 10/08/2017 10/08/2017 CLS Outpatient Wilfred, 11:15:00 23:59:59 Leslie L [id number] 09/13/2017 09/13/2017 CLS Outpatient Wilfred, 14:15:00 23:59:59 Leslie L [id number] 11/13/2016 11/13/2016 CLS Outpatient LeClaire, 14:21:00 23:59:59 Moshe L [id number] 07/31/2016 07/31/2016 CLS Outpatient Wilfred, 13:40:00 23:59:59 Leslie L [id number] 06/27/2016 06/27/2016 CLS Outpatient Wilfred, 04:35:00 23:59:59 Leslie L [id number] 06/19/2016 06/19/2016 CLS Outpatient Wilfred, 09:30:00 23:59:59 Leslie L [id number] 06/15/2016 06/15/2016 CLS Outpatient Wilfred, 16:12:00 23:59:59 Leslie L [id number] 06/12/2016 06/12/2016 CLS Outpatient Wilfred, 09:30:00 23:59:59 Leslie L [id number] 06/05/2016 06/05/2016 CLS Outpatient Wilfred, 09:30:00 23:59:59 Leslie L [id number] 05/22/2016 05/22/2016 CLS Outpatient Wilfred, 13:30:00 23:59:59 Leslie L [id number] 05/22/2016 05/22/2016 CLS Outpatient Wilfred, 12:45:00 23:59:59 Leslie L [id number] 05/12/2016 05/12/2016 CLS Outpatient Wilfred, 15:20:00 23:59:59 Leslie L [id number] 05/08/2016 05/08/2016 CLS Outpatient Wilfred, 09:45:00 23:59:59 Leslie L [id number] 04/24/2016 04/24/2016 CLS Outpatient Wilfred, 09:55:00 23:59:59 Leslie L [id number] 04/19/2016 04/19/2016 CLS Outpatient Ritchie, 15:45:00 23:59:59 Sherrie Roach [id number] 04/19/2016 04/19/2016 CLS Outpatient Wilfred, 13:51:00 23:59:59 Leslie L [id number] 04/06/2016 04/06/2016 CLS Outpatient Wilfred, 14:10:00 23:59:59 Leslie L [id number] 03/16/2016 03/16/2016 CLS Outpatient Wilfred, 15:50:00 23:59:59 Leslie L [id number] 02/14/2016 02/14/2016 CLS Outpatient Wilfred, 15:30:00 23:59:59 Leslie L [id number] 02/14/2016 02/14/2016 CLS Outpatient Wilfred, 15:15:00 23:59:59 Leslie L [id number] 01/17/2016 01/17/2016 CLS Outpatient Wilfred, 15:30:00 23:59:59 Leslie L [id number] 12/20/2015 12/20/2015 CLS Outpatient Wilfred, 16:15:00 23:59:59 Leslie L [id number] 12/20/2015 12/20/2015 CLS Outpatient Wilfred, 15:45:00 23:59:59 Leslie L [id number] 11/29/2015 11/29/2015 CLS Outpatient Wilfred, 15:00:00 23:59:59 Leslie L [id number] 11/23/2015 11/23/2015 CLS Outpatient Singh, 11:05:00 23:59:59 Jenny Herrera [id number] 06/25/2016 06/28/2016 DIS Inpatient WILFRED Krause [facility] 29 17:12:00 12:00:00 MD Medical LESLIE L [place] [id number] 05/12/2016 05/12/2016 DIS Outpatient WILFRED Krause OBOBS [id number] 16:05:00 17:13:00 MD Medical LESLIE L [place] [id number] 04/12/2018 PEN Preadmit 17 00:00:00 [id number] 09/22/2013 ACT Unknown [id number] 10:25:00
--- OUTSIDE RECORDS SUMMARY | 2018-04-14 16:08 | External Medical Summary | Continuity of Care Document ---
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 Test Name Date and Time Measure Units Reference Range Abnormal Flag Comments Panel Description: OBSTETRIC PANEL WHITE BLOOD CELL 8.4 Thousand/uL 3.8-10.8 N COUNT 14:55:00 RED BLOOD CELL 4.45 Million/uL 3.80-5.10 N COUNT 14:55:00 HEMOGLOBIN 13.5 g/dL 11.7-15.5 N 14:55:00 HEMATOCRIT 39.5 % 35.0-45.0 N 14:55:00 MCV 88.8 fL 80.0-100.0 N 14:55:00 MCH 30.3 pg 27.0-33.0 N 14:55:00 MCHC 34.2 g/dL 32.0-36.0 N 14:55:00 RDW 13.1 % 11.0-15.0 N 14:55:00 PLATELET COUNT 283 Thousand/uL 140-400 N 14:55:00 MPV 10.4 fL 7.5-12.5 N 14:55:00 ABSOLUTE 5863 cells/uL 7909-7869 N NEUTROPHILS 14:55:00 ABSOLUTE 2016 cells/uL 850-3900 N LYMPHOCYTES 14:55:00 ABSOLUTE 454 cells/uL 200-950 N MONOCYTES 14:55:00 ABSOLUTE 50 cells/uL 15-500 N EOSINOPHILS 14:55:00 ABSOLUTE 17 cells/uL 0-200 N BASOPHILS 14:55:00 NEUTROPHILS 69.8 % N 14:55:00 LYMPHOCYTES 24.0 % N 14:55:00 MONOCYTES 5.4 % N 14:55:00 EOSINOPHILS 0.6 % N 14:55:00 BASOPHILS 0.2 % N 14:55:00 ANTIBODY SCREEN, NO ANTIBODIES N RBC W/REFL ID, 14:55:00 DETECTED Reference range TITER AND AG No antibodies detected This assay is a screening test for the detection of red blood cell antibodies. The test is not to be used for pretransfusion screening or for the medical management of an alloimmunized . ABO GROUP O 14:55:00 RH TYPE RH(D) 14:55:00 POSITIVE RPR (DX) W/REFL NON-REACTIVE NON-REACTIV N TITER AND 14:55:00 E CONFIRMATORY TESTING HEPATITIS B NON-REACTIVE NON-REACTIV N SURFACE ANTIGEN 14:55:00 E RUBELLA ANTIBODY 3.47 index N Index (IGG) 14:55:00 Interpretation ----- <0.90 Not consistent with Immunity 0.90-0.99 Equivocal > or=1.00 Consistent with Immunity The presence of rubella IgG antibody suggests immunization or past or current infection withrubella virus.Test performed at [facility] [id number] [place] [address]Mktkcfx r: LISA SANCHEZ DO,MPH Panel Description: HIV 1/2 ANTIGEN/ANTIBODY,FOURTH GENERATION W/RFL HIV NON-REACTIVE NON-REACTIVE N HIV-1 antigen and HIV-1/HIV- 2 antibodies were AG/AB, 14:55:00 notdetected. There is no laboratory evidence of 4TH GEN HIVinfection. PLEASE NOTE: This information has been disclosed toyou from records whose confidentiality may beprotected by state law. If your state requires suchprotection, then the state law prohibits you frommaking any further disclosure of the informationwithout the specific written consent of the personto whom it pertains, or as otherwise permitted by law.A general authorization for the release of medical orother information is NOT sufficient for this purpose. For additional information please refer tohttp://education.[employer]/faq/JTQ068(This link is being provided for informational/educational purposes only.) The performance of this assay has not been clinicallyvalidated in patients less than 2 years old. REPORT COMMENT:FASTING:NOTest performed at [facility] [id number] [place] [address]Guseupip: LISA SANCHEZ DO,MPH Panel Description: Bacteria identified in Urine by Culture CULTURE, URINE, 15:00:00 SEE NOTE CULTURE, URINE, ROUTINE ROUTINE MICRO NUMBER: [id number] TEST STATUS: FINAL SPECIMEN SOURCE: URINE SPECIMEN QUALITY: ADEQUATE RESULT: Single organism less than 10,000 CFU/mL isolated. These organisms, commonly found on external and internal genitalia, are considered colonizers. No further testing performed.REPORT COMMENT:RFASTING:UNKNOWNTest performed at [facility] [id number] [place] [address]Gtejldct: LISA SANCHEZ DO,MPH Panel Description: CHLAMYDIA/N. GONORRHOEAE RNA, TMA CHLAMYDIA NOT DETECTED NOT DETECTED N TRACHOMATIS RNA, 14:57:00 TMA NEISSERIA NOT DETECTED NOT DETECTED N GONORRHOEAE RNA, 14:57:00 TMA [id number] SEE NOTE This test was 14:57:00 performed using the APTIMA COMBO2 Assay([employer] The analytical performance characteristics of this assay, when used to test SurePath specimens havebeen determined by [employer]. REPORT COMMENT:FASTING:UNKNO WNTest performed at [facility] [id number] [place] [address]Rqfzhxsg: LISA SANCHEZ DO,MPH Advance Directives Directive Yes / No Effective Date File Name Unknown Encounters Encounter Practice Location Reason(s) Diagnoses Date Provider Care Team Description For Visit Members Isela Krause Encounter Wilfred Referring In Womens for vs -2017 Leslie. Provider: Carter SADLER, of normal [address], , [place], [place] , [address] [id number], [id number] [address] [place] ones[place] Krause, [address] 120, tel:[phone] gestation [place], [place], [id number], [id number]. [place]. tel: tel:[phone] Isela Krause Wilfred Referring In Womens Follow-Up, -2015 Lelsie. Provider: Carter SADLER, Routine [address], [place], [place] [facility] [id number], [address] [place] Kra[place], [address] 120, tel:+21 [place], [id number], [id number]. [place]. tel: tel:[phone] Isela Krause May- Wilfred Referring In Womens -2016 Leslie. Provider: Carter SADLER, [address], [place], [place] [facility] [id number], [address], [address] [place] Kra[place], [place] 120, tel:+21 [place], [id number], [id number]. [place]. tel: tel:[phone] Isela Krause Wilfred Referring In Womens -2016 Leslie. Provider: Carter ASDLER, [address], [place], [place] [facility] [id number], [address] [place] Kra[place], [address] 120, tel:[phone] [place], [id number], [id number]. [place]. tel:[phone] tel:[phone] Associates [place]i Singh In Womens -2015 [facility] [place], [address], [facility] , [id number], [address], [place], tel:[phone] [place], [id number], [place]. tel:[phone] Family History Family Member Diagnosis Age At [...] Insurance type Covered green party ID Authorization(s) [facility] [id number] [place] Medicaid [place] [id number] [facility] [id number] [place] Medicaid [place] [id number] Social History Type Description Quantity Date Captured Alcohol Use Details No Caffeine Use Details tea Tobacco Use Status Never smoked tobacco Smoking Status Never smoker Non-Smoking Tobacco Use : No Details Available : No Details Available Details Vital Signs Date / Height Weight BMI Pulse Blood Temperature Respiratory Body Head BMI Time: Rate Pressure Rate Surface Circumference percentile Area 171.50 27.0 139/ lbs 6 mm[Hg] 2:15 kg/m PM eter (2) Chief Complaint And Reason For Visit Unknown Chief Complaint And Reason For Visit Reason For Referral Reason For Referral Unknown Plan Of Care Date Type Action Status Appointment Cira Park BOOKED Appointment Cira Park BOOKED Future Order: Lab Order Pap Smear With HPV Reflex If ASCUS Ordered ([id number]), Collected on: Date Type Problem Goal Intervention Status Start [...]
--- OUTSIDE RECORDS SUMMARY | 2018-04-14 16:08 | External Medical Summary | Continuity of Care Document ---
:1995 Author Organization [facility] Address [address] [place], [place] [address] Phone Support Name Relationship Address Phone Dario Park parent [address] [phone] [place] [address] Allergies, Adverse Reactions, Alerts Substance Reaction Severity [...] Reference Range Abnormal Flag Comments Panel Description: CBC With Differential/Platelet WBC 11:21:00 7.2 x10E3/uL 3.4-10.8 RBC 11:21:00 3.73 x10E6/uL 3.77-5.28 L Hemoglobin 11:21:00 11.2 g/dL 11.1-15.9 Hematocrit 11:21:00 34.1 % 34.0-46.6 MCV 11:21:00 91 fL 79-97 MCH 11:21:00 30.0 pg 26.6-33.0 MCHC 11:21:00 32.8 g/dL 31.5-35.7 RDW 11:21:00 13.9 % 12.3-15.4 Platelets 11:21:00 211 x10E3/uL 150-379 Neutrophils 11:21:00 67 % Not Estab. Lymphs 11:21:00 26 % Not Estab. Monocytes 11:21:00 6 % Not Estab. Eos 11:21:00 1 % Not Estab. Basos 11:21:00 0 % Not Estab. Immature Cells 11:21:00 Neutrophils (Absolute) 11:21:00 4.8 x10E3/uL 1.4-7.0 Lymphs (Absolute) 11:21:00 1.9 x10E3/uL 0.7-3.1 Monocytes(Absolute) 11:21:00 0.4 x10E3/uL 0.1-0.9 Eos (Absolute) 11:21:00 0.1 x10E3/uL 0.0-0.4 Baso (Absolute) 11:21:00 0.0 x10E3/uL 0.0-0.2 Immature Granulocytes 11:21:00 0 % Not Estab. Immature Grans (Abs) 11:21:00 0.0 x10E3/uL 0.0-0.1 NRBC 11:21:00 Hematology Comments: 11:21:00 Panel Description: Glucose [Mass/volume] in Serum or Plasma --1 hour post 50 g glucose PO Gestational Diabetes Screen 11:21:00 97 mg/dL 65-135 Advance Directives Directive Yes / No Effective Date File Name Unknown Encounters Encounter Practice Location Reason(s) Diagnoses Date Provider Care Team Description For Visit Members Isela Krause Encounter Wilfred Referring In Womens for suprvsn -2017 Leslie. Provider: Carter SADLER, of normal [address], , Medical [place], second Center 700 [id number], [email or web address] [address] [facility] [place] weeks 120, Center tel: gestation of [place] [facility] 120, [address] [place], [id number] [place], , [place]. [id number]. tel: tel:[phone] Isela Krause Encounter Wilfred Referring In Womens for suprvs -2017 Leslie. Provider: Carter SADLER, of normal [address], , [place], second Center 700 [id number], [email or web address] Dr [facility] [place] weeks 120, [place] tel: gestation of [place] [facility] 120, [address] [place], [id number] [place], , [place]. [id number]. tel: tel:[phone] Isela Krause Encounter Wilfred Referring In Womens Ultrasound for suprvs -2017 Leslie. Provider: Carter SADLER, of normal [address], , [place], second Center 700 [id number], [email or web address] [address] [place]vin [place] weeks 120, [place] tel:21 gestation [address] [place] [facility] 120, [address] [place], [id number] [place], , [place]. [id number]. tel: tel:[phone] Isela Krause Encounter Wilfred Referring In Womens for suprvsn -2017 Leslie. Provider: Carter SADLER, of normal [address], , [place], second Center 700 [id number], [email or web address] [address] [facility] [place] weeks 120, [place] tel:21 gestation of [place] [facility] 120, [address] [place], [id number] [place], , [place]. [id number]. tel: tel:[phone] Isela Krause Encounter Wilfred Referring In Womens for suprn -2017 Leslie. Provider: Carter SADLER, of normal [address], , [place], first Center 700 [id number], [email or web address] , [facility] [place] weeks 120, Center tel:[phone] gestation of Jimi, [facility] 120, [address] [place], [place], [id number] [place], , [place]. [id number]. tel: tel:[phone] Isela Krause Encounter Wilfred [facility] Leslie. Provider: Carter SADLER, of normal [address], , [place], first Center 700 [id number], [email or web address] , [facility] [place] weeks 120, Center tel:+21 gestation of [place] [facility] 120, [address] [place], [id number] [place], , [place]. [id number]. tel: tel:[phone] Isela Krause Wilfred Referring In Womens Follow-Up, -2015 Leslie. Provider: Carter SADLER, Routine [address], [place], Center [address] [id number], [address] [facility] [place] 120, Center tel:+[address] [facility] 120, [address] [place], [id number] [place], , [place]. [id number]. tel: tel:[phone] Isela Krause May- Wilfred Referring In Womens -2015 Leslie. Provider: Carter SADLER, [address], [place], Center [address] [id number], Dr [facility] [place] 120, Center tel:[phone] [facility] 120, [address] [place], [id number] [place], , [place]. [id number]. tel: tel: [phone] Isela Krause Wilfred Referring In Leslie. Provider: Health [facility] [address], [place], [place] [id number], , [facility] 120, [place] [address] tel:21 [place] 120, [address] [place], [place], [id number] [place], , [place]. [id number]. tel: tel: [phone] Isela Krause Nov- Singh In Jenny. Health [facility], [address], [place], [place] [id number], , [facility] 120, tel: [place] [address] [place], [id number] , [place]. tel: [phone] Family History Family Member Diagnosis Age At [...] vaccine Payers Payer name Insurance type Covered democrat ID Authorization(s) [facility] [id number] [employer] [place] - Medicaid [place] [id number] [facility] [id number] [employer] Medicaid [place] [id number] Social History Type Description Quantity Date Captured Alcohol Use Details No Caffeine Use Details Unknown Tobacco Use Status Unknown Smoking Status Never smoker Vital Signs Date / Height Weight BMI Pulse Blood Temperature Respiratory Body Head BMI Time: Rate Pressure Rate Surface Circumference percentile Area 189.70 29.8 137/73 2018 lbs 9 mm[Hg] 10:32 kg/m AM eter (2) 1 10:30 kg/m AM eter (2) Chief Complaint And Reason For Visit Unknown Chief Complaint And Reason For Visit Reason For Referral Reason For Referral Unknown Plan Of Care Date Type Action Status Appointment Cira Park BOOKED Appointment Cira Park BOOKED Appointment Cira Park BOOKED Appointment Cira Park BOOKED Appointment Cira Park BOOKED Future Order: Radiology Order Complete OB Ultrasound > 14 Weeks Ordered ([id number]) Date Type Problem Goal Intervention Status Start [...]
[2018-04-14] MEDS ORDERED: MAG-AL + SIM ORAL LIQUID 30ml PO PRN (16:11)
[2018-04-14] MEDS ORDERED: CALCIUM CARBONATE Chewable 500mg TABLET PO PRN (16:11)
[2018-04-14] MEDS ORDERED: LIDOCAINE 1% (10mg/ml) 2mL INJ PF SDV ID PRN (16:11)
[2018-04-14] MEDS ORDERED: SALINE FLUSH 10ml SYRINGE IV PRN ×2 (16:11→16:13)
[2018-04-14] MEDS ORDERED: ACETAMINOPHEN 500 MG TABLET PO PRN (16:11)
[2018-04-14] MEDS ORDERED: METHYLERGONOVINE 0.2 MG/ML INJECTION IM PRN (16:11)
[2018-04-14] MEDS ORDERED: CARBOPROST 250 MCG/ML INJECTION IM PRN (16:11)
[2018-04-14] MEDS ORDERED: HYDROCODONE/APAP 5mg/325mg TABLET PO PRN (16:13)
[2018-04-14] MEDS ORDERED: ZOLPIDEM 5 MG TABLET PO PRN (16:13)
[2018-04-14 16:44] VITALS: BMI 31.4
[2018-04-14 16:48] VITALS: RESP 16
[2018-04-14] MEDS: LR 1,000 ML IV PRN (23:50)
[2018-04-15] MEDS ORDERED: D5LR 1,000 ML IV PRN (02:28)
[2018-04-15] MEDS: LR 1,000 ML IV PRN ×2 (05:34→08:54)
[2018-04-15] MEDS ORDERED: ONDANSETRON 4 MG/2 ML INJECTION IVP PRN (05:58)
[2018-04-15] MEDS ORDERED: ROPIVACAINE 1% 10MG/ML INJ 200 MG, SUFentanil 50 MCG in NS 100 ML EPI PRN (05:58)
[2018-04-15] MEDS ORDERED: NALOXONE 0.4 MG/ML INJECTION IVP PRN (05:58)
[2018-04-15] MEDS ORDERED: DiphenhydrAMINE 50 MG/ML INJECTION IVP PRN (05:58)
--- NOTE | 2018-04-15 05:58 | Anesthesia Preoperative Report ---
Anesthesia Epidural/Spinal Rec - Date and Time Date: 04/15/18 Procedure: Labor Epidural Plan: Epidural - Vital Signs Vital Signs: Temperature 98.3 F 04/14/18 16:44 Pulse Rate 96 04/14/18 16:44 Respiratory Rate 16 04/14/18 16:44 Blood Pressure 121/70 04/14/18 16:44 /Para: P:1 - Medictaions & Allergies Inpatient Medications: Current Medications Acetaminophen (Tylenol) 500 - 1,000 mg PO Q4H PRN PRN Reason: Pain Hydrocodone Bitart/Acetaminophen (Pathfork 5/325) 1 - 2 tab PO Q4H PRN PRN Reason: Pain Al Hydroxide/Mg Hydroxide (Maalox Plus) 30 ml PO Q3H PRN PRN Reason: Indigestion Calcium Carbonate (Tums) 500 - 1,000 mg PO Q2H PRN PRN Reason: Indigestion Carboprost Tromethamine (Hemabate) 250 mcg IM O PRN PRN Reason: .Downtime Lactated Ringer's (Lactated Ringers) 1,000 mls @ 999 mls/hr IV .Q1H1M PRN Last Admin: 04/15/18 05:34 Dose: 999 mls/hr Dextrose/Lactated Ringer's (Dextrose 5%-Lactated Ringers) 1,000 mls @ 125 mls/ hr IV .Q8H PRN PRN Reason: Labor Oxytocin (Pitocin Drip) 30 unit in 500 mls @ 2 mls/hr IV .Q24H PRN; Protocol PRN Reason: Induction/Augmentation Lidocaine HCl (Xylocaine-Mpf 1% Vial) 0.2 mg ID O PRN PRN Reason: IV Start Methylergonovine Maleate (Methergine) 0.2 mg IM O PRN Misoprostol (Cytotec) 800 mcg PA ONCE PRN Sodium Chloride (Iv Flush) 10 - 80 ml IV PRN PRN PRN Reason: Flushing Sodium Chloride (Iv Flush) 10 - 80 ml IV PRN PRN PRN Reason: Flushing Zolpidem Tartrate (Ambien) 5 mg PO O PRN PRN Reason: Insomnia Last Admin: 04/14/18 23:12 Dose: 5 mg Allergies/Adverse Reactions: Allergies Allergy/AdvReac Type Severity Reaction Status Date / Time No Known Drug Allergies Allergy Unknown Verified 04/14/18 16:50 - Home Medications Home Medications: Home Medications Medication Instructions Recorded Confirmed Type Pnv No.95/Ferrous Fum/Folic AC 1 each PO DAILY 03/21/18 04/14/18 History [ Tablet] - Medical History Respiratory: DENIES: Asthma Cardiovascular: DENIES: Hypertension Gastrointestional: Reports: Ulcer DENIES: Gastroesophageal Reflux Disease Neuro/Musculoskeletal: Reports: Depression Other History: Reports: Now DENIES: Anesthesia Reactions - Surgical History GI Surgery/Treatments: Reports: Cholecystectomy (2009) Reproductive Surgery/Treatment: DENIES: Section Anesthesia Reactions: None Hx Family Anesthesia Reaction: No History of Motion Sickness: No - Social History Smoking Status: Never smoker Second Hand Exposure: No Substance Use Type: does not use - Pertinent Findings Lab Data: CBC and BMP 04/14/18 16:29 EKG Rhythm: Normal Sinus Rhythm - Physical Exam Respiratory Exam: lungs clear, bilateral breath sounds equal Cardiovascular Exam: regular rate and rhythm - Airway Assessment Mallampati Score: II TMD: 3 Fingerbreadths Neck Extension: good Overall Assessment: may be difficult mask vent, may be difficult intubation - ASA ASA Score: 2 - Discussion Discussion: Discussed risks/options/alternatives of anesthesia and questions answered. Patient consents. Nursing pain assessment noted. Anesthesia Discussion: spouse (significant other) Attestation Statement: Prior to the delivery of any anesthetic medication, I examined the patient, developed the plan, obtained the patient's consent and discussed the risk and benefits of the procedure with the patient/guardian.
[2018-04-15] MEDS ORDERED: OXYTOCIN DRIP 30 UNIT/500 ML ML IV PRN (06:00)
[2018-04-15] MEDS ORDERED: OXYTOCIN DRIP 30 UNIT/500 ML ML IV SCH (09:32)
[2018-04-15] MEDS ORDERED: MAG-AL + SIM ORAL LIQUID 30ml PO PRN (10:25)
[2018-04-15] MEDS ORDERED: DiphenhydrAMINE 25 MG CAPSULE PO PRN (10:25)
[2018-04-15] MEDS ORDERED: CALCIUM CARBONATE Chewable 500mg TABLET PO PRN (10:25)
[2018-04-15] MEDS ORDERED: ACETAMINOPHEN 500 MG TABLET PO PRN (10:25)
[2018-04-15] MEDS ORDERED: HYDROCORTISONE 2.5% CREAM 30gm RECTALLY PRN (10:25)
[2018-04-15] MEDS: IBUPROFEN 800 MG TABLET PO SCH ×2 (12:51→21:11)
--- NOTE | 2018-04-15 16:20 | Labor and Delivery Note ---
DATE OF DELIVERY 04/15/2018 Ms. Park progressed very rapidly in first stage of labor. She began to push with excellent effort at the complete and +2 presentation. She pushed for a few moments. Baby had extended bradycardia but patient delivered the head. With a further push, baby was delivered in total through a snug nuchal cord x1. The baby was then bulb suctioned, placed on mother's abdomen. As baby needed a little help initially, cord was doubly clamped and then cut by the baby's father. This is a liveborn female with Apgars of 7/9/9. After a few moments, the placenta delivered spontaneously, intact. It had a normal configuration, normal appearing three-vessel cord. Perineum was intact. Total blood loss was approximately 300 mL. At the time of this dictation, mother and baby are doing well status. [facility]
--- NOTE | 2018-04-16 08:11 | OB/GYN Progress Note ---
OB-PP Progress Note - General PPD1 Maternal Group B Strep: Negative - Subjective Date: 04/16/18 Lochia: Moderate Pain: controlled (Using Ibuprofen for pain.) Voiding: voiding Nausea or Vomiting Present: No - Objective Vital Signs: Last Vital Signs Temp 97.8 F 04/16/18 06:35 Pulse 60 04/16/18 06:35 Resp 16 04/16/18 06:35 BP 119/69 04/16/18 06:35 Pulse Ox 98 04/16/18 06:35 Urine Output: good General: alert and oriented Abdomen: fundus firm Extremities: non-tender Edema: none - Assessment Assessment: - Plan Plan: routine care, discharge home
[2018-04-16] MEDS ORDERED: PRENATAL VITAMIN TABLET PO SCH (09:00)
[2018-04-16] MEDS ORDERED: DOCUSATE CALCIUM 240 MG CAPSULE PO SCH (09:00)
[2018-04-16] MEDS: IBUPROFEN 800 MG TABLET PO SCH (10:17)
[2018-04-16 14:22] VITALS: BP 126/74; PULSE 62; TEMP 98.9; O2SAT 99
--- NOTE | 2018-04-16 18:20 | Anesthesia Postoperative Note ---
- Date and Time Date: 04/16/18 Time: 09:00 - Status Patient Participated in Evaluation: Patient Participated in Person Vital Signs: Temperature 98.9 F 04/16/18 14:00 Pulse Rate 62 04/16/18 14:00 Respiratory Rate 16 04/16/18 14:00 Blood Pressure 126/74 04/16/18 14:00 Pulse Oximetry 99 04/16/18 14:00 Respiratory Function: Airway Patent Mental Status: Alert and Oriented Pain Intensity: 0 Hydration: Taking PO Fluids Nausea/Vomiting: None Complications During Recover: None Apparent - Follow-Up Instructions Instructions: Per Surgeon
== END 2018-04-16 14:00 | disposition home or self-care (01) | DRG 775 ==
LOC: MC 04-14 15:56
PROVIDERS: ADMIT Obstetrics & Gynecology; ATTEND Obstetrics & Gynecology